=== PATIENT | female | born 1950 | race Caucasian/White ===

== ENCOUNTER 2020-07-01 12:47 | Emergency (ER) | payer MEDICARE, BC ==
[2020-07-01] MEDS ORDERED: methylPREDNISolone Sodium Succinate 125 MG/2 ML SDV IM ONE (14:12)
--- NOTE | 2020-07-01 14:19 | EDM.PDOC ---
ED HPI GENERAL MEDICAL PROBLEM - General Chief Complaint: Eye Problems Stated Complaint: DOUBLE VISION Time Seen by Provider: 07/01/20 14:11 Source of Information: Reports: Patient, Provider, RN Notes Reviewed History Limitations: Reports: No Limitations - History of Present Illness INITIAL COMMENTS - FREE TEXT/NARRATIVE: 7-year-old female presents emergency department a complaint of double vision, I did receive a call from Dr. [facility] who had the opportunity to evaluate Ms. [place] found to have double vision no loss of vision blood work shows elevated sed rate at 72 done today - Related Data Allergies Allergy/AdvReac Type Severity Reaction Status Date / Time ibuprofen Allergy Abdominal Verified 07/01/20 14:26 Pain amoxicillin [From Augmentin] AdvReac Dizziness Verified 07/01/20 14:26 ciprofloxacin [From Cipro] AdvReac Dizziness Verified 07/01/20 14:26 clavulanic acid AdvReac Dizziness Verified 07/01/20 14:26 [From Augmentin] Home Meds: Home Meds Ascorbic Acid [Vitamin C] 100 mg PO DAILY 07/01/20 [History] Cefpodoxime [Vantin] 200 mg PO DAILY 07/01/20 [History] Cyanocobalamin (Vitamin B12) [Vitamin B12] 1,000 mcg PO DAILY 07/01/20 [History] Mv-Mn/Iron/Folic Acid/Herb 190 [Vitamin D3 Complete Caplet] 1 each PO DAILY 07/01/20 [History] Niacin 500 mg PO DAILY 07/01/20 [History] Turmeric 400 mg PO DAILY 07/01/20 [History] Zinc 50 mg PO DAILY 07/01/20 [History] Past Medical History - Past Health History Medical/Surgical History: Denies Medical/Surgical History Social & Family History - Tobacco Use Tobacco Use Status *Q: Never Tobacco User ED ROS GENERAL - Review of Systems Review Of Systems: See Below Constitutional: Reports: No Symptoms HEENT: Reports: Vision Change Respiratory: Reports: No Symptoms Cardiovascular: Reports: No Symptoms Neurological: Denies: Headache ED EXAM GENERAL W FULL EYE - Physical Exam Exam: See Below Exam Limited By: No Limitations General Appearance: Alert, WD/WN, No Apparent Distress Eye Exam: Bilateral Eye: EOMI, Normal Inspection Extraocular Movements: Bilateral: Intact Head: Atraumatic, Normocephalic, Other (No temporal artery tenderness) Neck: Normal Inspection, Supple, Non-Tender, Full Range of Motion Respiratory/Chest: No Respiratory Distress Course - Vital Signs Last Recorded V/S: Last Vital Signs Temp 97.6 F 07/01/20 14:10 Pulse 78 07/01/20 15:10 Resp 16 07/01/20 14:10 BP 158/79 H 07/01/20 15:10 Pulse Ox 97 07/01/20 15:10 - Orders/Labs/Meds Labs: Laboratory Tests 07/01/20 07/01/20 Range/Units 14:31 14:31 WBC 7.3 (4.5-11.0) K/uL RBC 4.04 (3.30-5.50) M/uL Hgb 11.9 L (12.0-15.0) g/dL Hct 37.0 (36.0-48.0) % MCV 92 (80-98) fL MCH 30 (27-31) pg MCHC 32 (32-36) % Plt Count 233 (150-400) K/uL Neut % (Auto) 72 H (36-66) % Lymph % (Auto) 17 L (24-44) % Pope % (Auto) 10 H (2-6) % Eos % (Auto) 1 L (2-4) % Baso % (Auto) 0 (0-1) % Sodium 136 L (140-148) mmol/L Potassium 4.2 (3.6-5.2) mmol/L Chloride 99 L (100-108) mmol/L Carbon Dioxide 27 (21-32) mmol/L Anion Gap 14.2 H (5.0-14.0) mmol/L BUN 37 H (7-18) mg/dL Creatinine 2.3 H (0.6-1.0) mg/dL Est Cr Clr Drug Dosing 18.00 mL/min Estimated GFR (MDRD) 21 L (>60) Glucose 140 H (74-106) mg/dL Calcium 9.1 (8.5-10.1) mg/dL Total Bilirubin 0.2 (0.2-1.0) mg/dL AST 14 L (15-37) U/L ALT 19 (12-78) U/L Alkaline Phosphatase 78 (46-116) U/L Total Protein 7.5 (6.4-8.2) g/dL Albumin 3.4 (3.4-5.0) g/dL Globulin 4.1 H (2.3-3.5) g/dL Albumin/Globulin Ratio 0.8 L (1.2-2.2) Meds: Medications Discontinued Medications Generic Name Dose Route Start Last Admin Trade Name Michael PRN Reason Stop Dose Admin Methylprednisolone Sodium Succinate 125 mg 07/01/20 14:12 07/01/20 14:33 Solu-Medrol IM 07/01/20 14:13 125 mg ONETIME ONE Administration Departure - Departure Time of Disposition: 15:11 Disposition: Home, Self-Care 01 Condition: Fair Clinical Impression: Double vision - Discharge Information Referrals: Edie Lowe MD [Primary Care Provider] - Forms: ED Department Discharge Additional Instructions: Start your prednisone tomorrow 20 mg once twice a day please follow-up with Dr. Arevalo outpatient surgery Monday for biopsy of the temporal artery this will make the diagnosis, follow-up with your primary care after biopsy results are available call return to the emergency department worsening of symptoms Sepsis Event Note (ED) - Focused Exam Vital Signs: Vital Signs Temp Pulse Resp BP Pulse Ox 07/01/20 15:10 78 158/79 H 97 07/01/20 14:10 97.6 F 106 H 16 159/98 H 98 - Assessment/Plan Plan: Assessment Acuity = acute Site and laterality = double vision Etiology = unknown concern for temporal arteritis Manifestations = none Location of injury = Home Lab values = CBC unremarkable sed rate up at 72, Plan Call discussed case Dr. Arevalo at 1450 kindly agreed to do a biopsy plan for Monday this schedule with outpatient she did receive 125 mg Solu-Medrol now will start steroids of prednisone 20 mg p.o. twice daily until results of biopsy return This note was dictated using [employer] recognition software please call with any questions on syntax or grammar.
== END 2020-07-01 15:23 | disposition home or self-care (01) ==
LOC: JP.ED 12:47
DX: H53.2 Diplopia (principal); Z88.1 Allergy status to other antibiotic agents; Z88.6 Allergy status to analgesic agent; Z88.8 Allergy status to other drugs, medicaments and biological substances; Z79.899 Other long term (current) drug therapy
CPT/HCPCS: 36415; 80053; 85025; 96372; 99284; J2930

== ENCOUNTER 2020-07-03 08:26 | Day surgery (SDC) | payer MEDICARE, BC ==
[~2020-07-03 08:26] MED LIST: Lidocaine 1% with EPINEPHrine 1:100,000 50 ML MDV ONE
[2020-07-03] MEDS ORDERED: Dextrose 5%-Lactated Ringers 1,000 ML IV SCH (09:15)
[2020-07-03] MEDS ORDERED: Midazolam 1 MG/ML 2 ML SDV ONE (09:52)
[2020-07-03] MEDS ORDERED: fentaNYL 100 MCG/2 ML SDV ONE (09:52)
[2020-07-03] MEDS ORDERED: Propofol 200 MG/20 ML SDV ONE ×2 (09:53→11:24)
[2020-07-03] MEDS ORDERED: Doxycycline 100 MG in Sodium Chloride 0.9% 100 ML IV ONE (10:00)
--- NOTE | 2020-07-13 08:13 | OR ---
DATE OF PROCEDURE: 07/03/2020 SURGEON: Alexy Arevalo MD PREOPERATIVE DIAGNOSIS: Rule out temporal arteritis. POSTOPERATIVE DIAGNOSIS: Rule out temporal arteritis. OPERATIVE PROCEDURE: Bilateral temporal artery biopsies ([id number]). ANESTHESIA: Local plus IV sedation. INDICATIONS FOR PROCEDURE: This is a 70-year-old female, presenting with some double vision along with elevated sedimentation rate. She is felt to be at risk for the diagnosis of temporal arteritis. She was seen by Dr. Lizy Kramer at [facility] along with Dr. Floyd Officer in the emergency room and was referred for bilateral temporal artery biopsies. Potential risks of the procedure including bleeding, infection, some cosmetic deformity and such were reviewed, and the patient wishes to proceed. DETAILS OF PROCEDURE: The patient was taken to the operating room, placed in a supine position. After IV sedation administered, the course of the temporal arteries beginning just above the ear were marked with Doppler and those areas were then prepped and draped and anesthetized with 1% lidocaine. Beginning on the left side, linear incision was made over the course of the artery, carried down through the skin and subcutaneous tissue. The artery was then identified and dissected out for over 3 to 4 cm length. Proximally and distally, this was ligated and divided and the interval artery then excised and sent for pathologic review. The incision was then closed with some 4-0 Vicryl stitch deep and then a 5-0 Vicryl subcuticular stitch and a surgical glue applied. Attention was then taken to the right side, identical procedure was undertaken and a similar closure, and at that point, the patient was taken to the recovery room in satisfactory condition. On both sides, arteries did not appear to be grossly pathologic, but obviously the final pathology report will be the determining factor. She will be instructed to continue on the prednisone until her followup appointment with her primary care provider next week in [place]. Alexy Arevalo MD /[id number]
== END 2020-07-03 13:45 | disposition home or self-care (01) ==
LOC: JP.SDS 08:26
PROVIDERS: ATTEND Surgery
DX: H53.2 Diplopia (principal); E66.9 Obesity, unspecified; Z68.35 Body mass index [BMI] 35.0-35.9, adult
CPT/HCPCS: 88305; 88313; J2250; J2704; J3010; J3490; J7050; J7121